=== PATIENT | male | born 1980 | race African-American/Black ===

== ENCOUNTER 2016-12-28 20:34 | Emergency (ER) | payer OTHER ==
[~2016-12-28] VITALS: Ht 175.3 cm; Wt 115.9 kg
[~2016-12-28 20:34] MED LIST: ACETAMINOPHEN500 M2 PO; AMOXICILLIN500 M1 PO; AMOXIL500 M2 PO; ASPIRIN81 M2; ASPIRIN81 M2 PO; ASPIRIN81 MG PO; ATORVASTATIN CA20 MG PO; AUGMENTIN875 MG PO; BIAXIN PO; BP MEDICATION; BYSTOLIC10 MG PO; CARAFATE1 G; CARAFATE1 GM PO; CENTRUM PO; DICLOFENAC PO; EC-NAPROSYN500 MG PO; ESCITALOPRAM OX10 MG; FIORICET1 TAB PO; FLEXERIL PO; FLEXERIL10 MG PO; HCTZ PO; HYDROCHLOROTHIA25 MG PO; LIPITOR; LIPITOR PO; LISINOPRIL-HCTZ1 T18 PO; LISINOPRIL20 MG PO; LODINE XL PO; LOPRESSOR PO; LORTAB 7.5-5001 TAB PO; MEDROL PO; MOTRIN PO; NAPROSYN500 MG PO; NEXIUM PO; NO MEDICATIONS; NORVASC PO; OMEPRAZOLE20 M2 PO; PHENERGAN PO; PROTONIX PO; REGLAN10 MG PO; ROBITUSSIN-PE1 ML PO; SIMVASTATIN40 MG PO; ST. JOSEPH ASP325 MG PO; TENORMIN50 MG PO; TOPROL XL PO; TYLENOL #3 PO; ULTRAM PO; VICODIN 5/500 T1 TAB PO; VOLTAREN75 MG PO; ZESTORETIC; ZESTORETIC 10/11 TA1 PO; ZESTORETIC PO
== END 2016-12-28 23:09 | disposition left against medical advice (07) ==
LOC: SED 20:34
DX: Z53.21 Procedure and treatment not carried out due to patient leaving prior to being seen by health care provider (principal)